=== PATIENT | male | born 1985 | race Caucasian/White ===

== ENCOUNTER 2016-11-20 15:33 | Emergency (ER) | payer SELFPAY | END 2016-11-20 17:12 | disposition home or self-care (01) | LOC: SED 15:33 | DX: T15.92XA Foreign body on external eye, part unspecified, left eye, initial encounter (principal); F17.200 Nicotine dependence, unspecified, uncomplicated; Z88.5 Allergy status to narcotic agent; Z88.0 Allergy status to penicillin; Z23 Encounter for immunization | CPT/HCPCS: 65205; 90471; 90715; 99283 ==